=== PATIENT | female | born 1975 | race Two or more races ===

== ENCOUNTER 2018-03-14 18:32 | Outpatient (CLI) | payer OTHER ==
[~2018-03-14 18:32] MED LIST: FOSAMAX; METROTEXATE; ORENCIA125 MG/1 M; PLAQUENIL; PREMARIN
== END 2018-03-14 18:41 | disposition home or self-care (01) ==
LOC: RAD 18:32
DX: G50.0 Trigeminal neuralgia (principal); Z01.810 Encounter for preprocedural cardiovascular examination

== ENCOUNTER 2018-03-17 18:24 | Outpatient (CLI) | payer OTHER | END 2018-03-17 18:39 | disposition home or self-care (01) | LOC: LAB 18:24 | DX: G50.0 Trigeminal neuralgia (principal); Z01.810 Encounter for preprocedural cardiovascular examination ==

== ENCOUNTER 2018-05-10 20:04 | Emergency (ER) | payer OTHER ==
[~2018-05-10] VITALS: Ht 154.9 cm; Wt 65.8 kg
== END 2018-05-10 23:51 | disposition home or self-care (01) ==
LOC: ER 20:04
DX: R51 Headache (principal)

== ENCOUNTER 2019-12-29 11:30 | Emergency (ER) | payer OTHER ==
[~2019-12-29] VITALS: Ht 154.9 cm; Wt 69.9 kg
[2019-12-29] MEDS ORDERED: PLAQUENIL PO (12:12)
[2019-12-29] MEDS ORDERED: PREMARIN0.45 MG PO (12:12)
[2019-12-29] MEDS ORDERED: BACTRIM DS TAB1 EACH PO (16:13)
== END 2019-12-29 17:14 | disposition home or self-care (01) ==
LOC: ER 11:30
DX: R10.31 Right lower quadrant pain (principal)

== ENCOUNTER → 2021-01-26 | Emergency (ER) | payer OTHER ==
[~2021-01-26] VITALS: Ht 154.9 cm; Wt 68.0 kg
[~2021-01-26] MED LIST changes: +BACTRIM DS TAB1 EACH PO; +PLAQUENIL PO; +PREMARIN0.45 MG PO
== END | disposition left against medical advice (07) ==
LOC: ER 00:25
DX: Z53.21 Procedure and treatment not carried out due to patient leaving prior to being seen by health care provider (principal)

== ENCOUNTER 2021-06-16 16:04 | Emergency (ER) | payer OTHER ==
[~2021-06-16] VITALS: Ht 165.1 cm; Wt 74.8 kg
[2021-06-16] MEDS ORDERED: KETO10TA2 PO (22:09)
[2021-06-16] MEDS ORDERED: ZITHROMAX500 MG PO (22:09)
== END 2021-06-16 22:14 | disposition home or self-care (01) ==
LOC: ER 16:04
DX: R51.9 Headache, unspecified (principal); Z03.818 Encounter for observation for suspected exposure to other biological agents ruled out; R42 Dizziness and giddiness

== ENCOUNTER 2022-06-24 21:36 | Emergency (ER) | payer OTHER ==
[~2022-06-24] VITALS: Ht 154.9 cm; Wt 72.6 kg
[~2022-06-24 21:36] MED LIST changes: +KETO10TA2 PO; +ZITHROMAX500 MG PO
[2022-06-24] MEDS ORDERED: RINVOQ ER15 MG PO (23:07)
[2022-06-25] MEDS ORDERED: ONDANSETRON ODT4 MG PO (03:42)
[2022-06-25] MEDS ORDERED: KETO10TA2 PO (03:42)
== END 2022-06-25 04:03 ==
LOC: ER 21:36
DX: G50.0 Trigeminal neuralgia (principal); Z88.6 Allergy status to analgesic agent

== ENCOUNTER 2023-03-28 20:14 | Emergency (ER) | payer OTHER ==
[~2023-03-28] VITALS: Ht 154.9 cm; Wt 72.6 kg
[~2023-03-28 20:14] MED LIST changes: +ONDANSETRON ODT4 MG PO; +RINVOQ ER15 MG PO
[2023-03-28] MEDS ORDERED: ASCOMP WITH CO1 EACH PO (20:45)
== END 2023-03-29 00:15 | disposition home or self-care (01) ==
LOC: ER 20:14
DX: G50.0 Trigeminal neuralgia (principal); R11.10 Vomiting, unspecified; I10 Essential (primary) hypertension; Z88.5 Allergy status to narcotic agent; Z88.6 Allergy status to analgesic agent